=== PATIENT | female | born 1955 | race Caucasian/White ===

== ENCOUNTER → 2017-11-21 | Outpatient (CLI) | payer OTHER ==
[~2017-11-21] MED LIST: ALPH300C PO; ASPI-496 PO; ATOR-2 PO; ATOR20TA9 PO; CALCIUM PO; CODE1CAP9 PO; CYCL1DRO EACHEYE; DEXL60CA2 PO; DICL18CA PO; ENAL20TA PO; ERGO500017 PO; EZET10TA18 PO; HYDR25TA6 PO; LEVO125T PO; LEVO1CAP3 PO; LIDO700A5 EXT; LOVA10TA PO; METF-366 PO; METF500T4 PO; METH5TAB6 PO; MULT-6 PO; OMEG10007 PO; POTA1SOL4 PO; RABE20TA26 PO; TRAM50TA2 PO; ZALE10CA PO; [UNRECOGNIZED DRUG - CODE] PO
[2017-11-21 15:07] LABS: MICROSCOPIC NOT IND
[2017-11-21 15:10] LABS: CULTURE INDICATED? NO
[2017-11-21 15:20] LABS: MD NO; RED BLOOD COUNT 4.01 x10^6/uL (3.82-5.3)
[2017-11-21 15:28] LABS: BASOPHILS # (AUTO) 0.03 x10^3/uL (0-0.1); BASOPHILS % (AUTO) 1 % (0-1); EOSINOPHILS # (AUTO) 0.02 x10^3/uL (0-0.4); EOSINOPHILS % (AUTO) 1 % (1-7); LYMPHOCYTES # (AUTO) 1.02 x10^3/uL (1-3.4); LYMPHOCYTES % (AUTO) 28 % (22-44); MEAN CORPUSCULAR HEMOGLOBIN 24.3 pg (27.0-34.8); MEAN CORPUSCULAR HGB CONC 32.2 g/dL (32.4-35.8); MEAN CORPUSCULAR VOLUME 75.4 fL (80-100); MEAN PLATELET VOLUME 8.8 fL (7.4-10.4); MONOCYTES # (AUTO) 0.63 x10^3/uL (0.2-0.8); MONOCYTES % (AUTO) 17 % (2-9); NEUTROPHILS # (AUTO) 1.91 x10^3/uL (1.8-6.8); NEUTROPHILS % (AUTO) 53 % (42-75); PLATELET COUNT 233 x10^3/uL (130-400); RED CELL DISTRIBUTION WIDTH 17.4 % (9.6-15.2)
[2017-11-21 15:30] LABS: INTERNATIONAL NORMALIZED RATIO 0.98 (0.93-1.1); PROTHROMBIN TIME 10.2 Seconds (9.6-11.5)
[2017-11-21 15:35] LABS: CHLORIDE 106 mmol/L (98-107)
[2017-11-21 15:36] LABS: ALANINE AMINOTRANSFERASE 30 U/L (12-78); ALBUMIN 3.7 g/dL (3.4-5.0); ANION GAP 7 mmol/L (5-15); CALCIUM 7.3 mg/dL (8.5-10.1); CREATININE 0.64 mg/dL (0.55-1.02)
[2017-11-21 15:37] LABS: ALKALINE PHOSPHATASE 95 U/L (45-117); BILIRUBIN,TOTAL 0.3 mg/dL (0.2-1.0); TOTAL PROTEIN 7.2 g/dL (6.4-8.2)
== END | disposition home or self-care (01) ==
LOC: STAR 13:30
PROVIDERS: ATTEND Neurological Surgery
DX: Z01.818 Encounter for other preprocedural examination (principal); I10 Essential (primary) hypertension; E11.9 Type 2 diabetes mellitus without complications; M51.36 Other intervertebral disc degeneration, lumbar region; R94.31 Abnormal electrocardiogram [ECG] [EKG]
CPT/HCPCS: 36415; 71046; 80053; 81003; 85025; 85610; 85730; 93005

== ENCOUNTER → 2018-06-26 | Outpatient (CLI) | payer OTHER ==
[~2018-06-26] MED LIST changes: +AREDS 2 PO; +BUTA1CAP30 PO; +CALC1CAP8 PO; +FERROUS SULFATE PO; +FISH1CAP PO; +HYDR12.58 PO; +IRON PO; +MAGN400T36 PO; -METF500T4 PO; +METF500T5 PO; +METH500T7 PO; +MULT-717 PO
[2018-06-26 10:17] LABS: CULTURE INDICATED? YES; MICROSCOPIC AUTO
[2018-06-26 10:22] LABS: BASOPHILS # (AUTO) 0.03 x10^3/uL (0-0.1); BASOPHILS % (AUTO) 0 % (0-1); EOSINOPHILS # (AUTO) 0.15 x10^3/uL (0-0.4); EOSINOPHILS % (AUTO) 2 % (1-7); LYMPHOCYTES # (AUTO) 1.62 x10^3/uL (1-3.4); LYMPHOCYTES % (AUTO) 25 % (22-44); MD NO; MEAN CORPUSCULAR HEMOGLOBIN 32.4 pg (27.0-34.8); MEAN CORPUSCULAR HGB CONC 33.7 g/dL (32.4-35.8); MEAN PLATELET VOLUME 8.5 fL (7.4-10.4); MONOCYTES # (AUTO) 0.44 x10^3/uL (0.2-0.8); MONOCYTES % (AUTO) 7 % (2-9); NEUTROPHILS # (AUTO) 4.23 x10^3/uL (1.8-6.8); NEUTROPHILS % (AUTO) 66 % (42-75); PLATELET COUNT 236 x10^3/uL (130-400); RED BLOOD COUNT 4.31 x10^6/uL (3.82-5.3); RED CELL DISTRIBUTION WIDTH 14.1 % (9.6-15.2)
[2018-06-26 10:27] LABS: ALANINE AMINOTRANSFERASE 31 U/L (12-78); ALBUMIN 4.2 g/dL (3.4-5.0); ANION GAP 9 mmol/L (5-15); CALCIUM 8.4 mg/dL (8.5-10.1); CHLORIDE 103 mmol/L (98-107); CREATININE 0.82 mg/dL (0.55-1.02)
[2018-06-26 10:29] LABS: ALKALINE PHOSPHATASE 111 U/L (45-117); BILIRUBIN,TOTAL 0.5 mg/dL (0.2-1.0); TOTAL PROTEIN 7.9 g/dL (6.4-8.2)
[2018-06-26 10:55] LABS: INTERNATIONAL NORMALIZED RATIO 1.08 (0.93-1.1); PROTHROMBIN TIME 11.2 Seconds (9.6-11.5)
== END | disposition home or self-care (01) ==
LOC: STAR 09:05
PROVIDERS: ATTEND Neurological Surgery
DX: Z01.818 Encounter for other preprocedural examination (principal); M48.061 Spinal stenosis, lumbar region without neurogenic claudication
CPT/HCPCS: 36415; 71046; 72110; 72114; 80053; 81001; 85025; 85610; 85730; 87086; 93005

== ENCOUNTER 2018-07-05 06:18 | Inpatient (IN) | payer OTHER ==
[~2018-07-05] VITALS: Ht 167.6 cm; Wt 110.8 kg
[~2018-07-05 06:18] MED LIST changes: +METF500T17 PO; -METF500T5 PO
[2018-07-05] MEDS ORDERED: BUPIVACAINE 0.25% ONE (06:34)
[2018-07-05] MEDS ORDERED: BACITRACIN 50,000 UNIT ONE (06:35)
[2018-07-05] MEDS ORDERED: BUPIVACAINE/PF-EPI 0.5% 1:200K ONE (06:35)
[2018-07-05] MEDS ORDERED: THROMBIN 5,000 UNIT VIAL TP ONE (06:35)
[2018-07-05] MEDS ORDERED: LACTATED RINGERS 1,000 ML IV SCH (06:53)
[2018-07-05] MEDS ORDERED: FENTANYL PF 250 MCG/5ML ONE (08:29)
[2018-07-05] MEDS ORDERED: MIDAZOLAM 1 MG/ML, 2ML ONE (08:29)
[2018-07-05] MEDS ORDERED: SCOPOLAMINE PATCH, 1.5MG PATCH.TD72 TD ONE ×2 (09:18→09:30)
[2018-07-05] MEDS ORDERED: ROCURONIUM 10 MG/ML,10ML ONE (09:21)
[2018-07-05] MEDS ORDERED: PROPOFOL 10 MG/ML, 20ML ONE (09:29)
[2018-07-05] MEDS ORDERED: DEXAMETHASONE 4 MG/ML, 1ML ONE ×2 (09:29)
[2018-07-05] MEDS ORDERED: FAMOTIDINE 20 MG TABLET PO ONE (09:30)
[2018-07-05] MEDS ORDERED: GABAPENTIN 300 MG CAPSULE PO ONE (09:30)
[2018-07-05] MEDS ORDERED: ACETAMINOPHEN 500 MG TABLET PO ONE (09:30)
[2018-07-05] MEDS ORDERED: OxyconTIN ER 20 MG TAB.ER PO ONE (09:30)
[2018-07-05] MEDS ORDERED: CEFAZOLIN 1,000 MG ONE ×2 (09:31)
[2018-07-05] MEDS ORDERED: PROPOFOL 100 ML ONE (10:52)
[2018-07-05] MEDS ORDERED: PROMETHAZINE 25 MG/ML, 1ML IV PRN (11:00)
[2018-07-05] MEDS ORDERED: ONDANSETRON 2MG/ML, 2ML IV PRN (11:00)
[2018-07-05] MEDS ORDERED: hydrALAzine 20 MG/ML, 1ML IV PRN (11:00)
[2018-07-05] MEDS ORDERED: LABETALOL 5MG/ML, 20ML IV PRN (11:00)
[2018-07-05] MEDS ORDERED: OXYcodone 5 MG/5 ML ORAL.SOL UDC PO PRN (11:00)
[2018-07-05] MEDS ORDERED: MEPERIDINE/PF 25MG/0.5ML IVPush PRN (11:00)
[2018-07-05] MEDS ORDERED: DIAZEPAM 5 MG/ML, 2ML IVPush PRN (11:00)
[2018-07-05] MEDS ORDERED: ONDANSETRON 2MG/ML, 2ML ONE (11:04)
[2018-07-05] MEDS ORDERED: HYDROmorphone 2 MG/ML, 1ML ONE (11:28)
[2018-07-05] MEDS ORDERED: METHOCARBAMOL 750 MG TABLET ONE (11:28)
[2018-07-05] MEDS ORDERED: FENTANYL PF 100 MCG/2ML ONE ×2 (11:28→11:52)
[2018-07-05] MEDS ORDERED: DIPHENHYDRAMINE 50 MG/ML, 1ML IVPush PRN (11:30)
[2018-07-05] MEDS ORDERED: PHARMACY MAY ADJ FOR RENAL FX MC PRN (11:30)
[2018-07-05] MEDS ORDERED: BISACODYL 10 MG SUPP PR PRN (11:30)
[2018-07-05] MEDS ORDERED: INSULIN REGULAR 100 UNITS/ML, 3ML VIAL SQ-INSULIN PRN (11:30)
[2018-07-05] MEDS ORDERED: SENNA/DOCUSATE TABLET PO PRN (11:30)
[2018-07-05] MEDS ORDERED: morphine SULFATE 10 MG/ML, 1ML IVPush PRN (11:30)
[2018-07-05] MEDS ORDERED: PROMETHAZINE 25 MG/ML, 1ML IM PRN (11:30)
[2018-07-05] MEDS ORDERED: HYDROcodone/APAP 10/325 MG TABLET PO PRN (11:30)
[2018-07-05] MEDS ORDERED: ONDANSETRON 2MG/ML, 2ML IVPush PRN (11:30)
[2018-07-05] MEDS ORDERED: METHOCARBAMOL 750 MG TABLET PO PRN (11:30)
[2018-07-05] MEDS ORDERED: TEMPLATE NON-FORMULARY MED. (Butalbital/Aspirin/Caffeine** (Fiorinal 50-325-40 Mg Capsule PO PRN (11:30)
[2018-07-05] MEDS ORDERED: OXYcodone/APAP 5/325MG TABLET PO PRN (11:30)
[2018-07-05] MEDS: HYDROmorphone 1 MG/ML, 1ML IV PRN ×4 (11:32→12:01)
[2018-07-05] MEDS: FENTANYL PF 100 MCG/2ML IV PRN ×4 (11:34→12:06)
[2018-07-05] MEDS ORDERED: MEPERIDINE/PF 50 MG/ML ONE (12:09)
[2018-07-05] MEDS ORDERED: OXYcodone 5 MG/5 ML ORAL.SOL UDC ONE (12:09)
[2018-07-05 13:21] VITALS: BP 144/74
[2018-07-05] MEDS: NS + 20MEQ KCL 1,000 ML IV SCH (14:02)
[2018-07-05] MEDS: CALCIUM/VITAMIN D3 250-125 TABLET PO SCH ×2 (15:09→21:50)
[2018-07-05] MEDS: HYDROcodone/APAP 5/325 TABLET PO PRN ×2 (15:09→16:20)
[2018-07-05] MEDS ORDERED: IRON 65 MG PO SCH (16:00)
[2018-07-05] MEDS: CEFAZOLIN PMX 1GM/50ML 50 ML IVPB SCH (17:55)
[2018-07-05 19:48] VITALS: BP 113/64
[2018-07-05] MEDS ORDERED: METFORMIN HCL PO SCH (21:00)
[2018-07-05] MEDS: B12 PO SCH (21:00)
[2018-07-05] MEDS: LEVOMEFOLATE PO SCH (21:00)
[2018-07-05] MEDS: ALGAL OIL PO SCH (21:00)
[2018-07-05] MEDS: DICLOFENAC SUBMICRONIZED 18 MG PO SCH (21:00)
[2018-07-05] MEDS: TEMPLATE NON-FORMULARY MED. (Zaleplon** 10 MG) HOMEMEDPO SCH (21:00)
[2018-07-05] MEDS: SODIUM CHLORIDE FLUSH 10ML SYR IVF SCH (21:00)
[2018-07-05] MEDS ORDERED: TEMPLATE NON-FORMULARY MED. (Alpha Lipoic Acid** 600 MG) PO SCH (21:00)
[2018-07-05] MEDS: B6 PO SCH (21:00)
[2018-07-05] MEDS: ATORVASTATIN 20 MG TABLET PO SCH (21:50)
[2018-07-05] MEDS: ENALAPRIL 20MG TABLET PO SCH (21:50)
[2018-07-05] MEDS: metFORMIN 500 MG TABLET PO SCH (21:50)
[2018-07-06] MEDS: CEFAZOLIN PMX 1GM/50ML 50 ML IVPB SCH (01:26)
[2018-07-06] MEDS: HYDROcodone/APAP 5/325 TABLET PO PRN ×4 (01:26→20:16)
[2018-07-06 02:04] VITALS: BP 94/57
[2018-07-06] MEDS: LEVOTHYROXINE 125 MCG TABLET PO SCH (06:03)
[2018-07-06 08:50] VITALS: BP 85/54
[2018-07-06] MEDS: LEVOMEFOLATE PO SCH ×2 (09:00→21:00)
[2018-07-06] MEDS: HYDROCHLOROTHIAZIDE 12.5 MG CAPSULE PO SCH (09:00)
[2018-07-06] MEDS: SODIUM CHLORIDE FLUSH 10ML SYR IVF SCH ×2 (09:00→23:37)
[2018-07-06] MEDS: B6 PO SCH ×2 (09:00→21:00)
[2018-07-06] MEDS: RABEPRAZOLE SODIUM 20 MG PO SCH (09:00)
[2018-07-06] MEDS: ALGAL OIL PO SCH ×2 (09:00→21:00)
[2018-07-06] MEDS ORDERED: ERGOCALCIFEROL 50,000 UNIT CAPSULE PO SCH (09:00)
[2018-07-06] MEDS: ENALAPRIL 20MG TABLET PO SCH ×2 (09:00→20:17)
[2018-07-06] MEDS: B12 PO SCH ×2 (09:00→21:00)
[2018-07-06] MEDS: DICLOFENAC SUBMICRONIZED 18 MG PO SCH ×2 (09:00→21:00)
[2018-07-06] MEDS: CALCIUM/VITAMIN D3 250-125 TABLET PO SCH ×3 (09:31→20:16)
[2018-07-06] MEDS: FERROUS SULFATE 325 MG TABLET PO SCH (09:31)
[2018-07-06] MEDS: EZETIMIBE 10 MG TABLET PO SCH (09:32)
[2018-07-06] MEDS: MAGNESIUM OXIDE 400 MG TABLET PO SCH (09:32)
[2018-07-06] MEDS: metFORMIN 500 MG TABLET PO SCH ×2 (09:32→20:16)
[2018-07-06] MEDS: MULTIVITAMINS/MINERALS TABLET PO SCH (09:33)
[2018-07-06] MEDS: NS + 20MEQ KCL 1,000 ML IV SCH ×3 (10:00→20:00)
[2018-07-06 14:14] VITALS: BP 111/63
[2018-07-06 19:51] VITALS: BP 118/67
[2018-07-06] MEDS: ATORVASTATIN 20 MG TABLET PO SCH (20:16)
[2018-07-06] MEDS: TEMPLATE NON-FORMULARY MED. (Zaleplon** 10 MG) HOMEMEDPO SCH (21:00)
[2018-07-07 00:32] VITALS: BP 112/64
[2018-07-07] MEDS: HYDROcodone/APAP 5/325 TABLET PO PRN ×3 (00:43→21:50)
[2018-07-07] MEDS: NS + 20MEQ KCL 1,000 ML IV SCH ×3 (05:13→22:53)
[2018-07-07] MEDS: LEVOTHYROXINE 125 MCG TABLET PO SCH (05:59)
[2018-07-07] MEDS ORDERED: BUPIVACAINE/PF-EPI 0.5% 1:200K ONE (06:39)
[2018-07-07] MEDS ORDERED: BUPIVACAINE 0.25% ONE (06:39)
[2018-07-07] MEDS ORDERED: THROMBIN 5,000 UNIT VIAL TP ONE (06:40)
[2018-07-07] MEDS ORDERED: BACITRACIN 50,000 UNIT ONE (06:40)
[2018-07-07] MEDS ORDERED: MIDAZOLAM 1 MG/ML, 2ML ONE (06:57)
[2018-07-07] MEDS ORDERED: FENTANYL PF 250 MCG/5ML ONE ×2 (06:57→08:34)
[2018-07-07] MEDS ORDERED: PROPOFOL 100 ML ONE (06:57)
[2018-07-07] MEDS ORDERED: BUPIVACAINE LIPOSOME/PF 10ML INFIL ONE (06:59)
[2018-07-07] MEDS ORDERED: ONDANSETRON 2MG/ML, 2ML ONE (07:04)
[2018-07-07] MEDS ORDERED: SUCCINYLCHOLINE 20 MG/ML, 10ML ONE (07:04)
[2018-07-07] MEDS ORDERED: LIDOCAINE 4%, 4 ML SYR/CANN TP ONE (07:04)
[2018-07-07] MEDS ORDERED: BUPIVACAINE/PF-EPI 0.5% 1:200K INFIL ONE (07:32)
[2018-07-07] MEDS ORDERED: BACITRACIN 50,000 UNIT IM ONE (07:32)
[2018-07-07] MEDS ORDERED: PROMETHAZINE 25 MG/ML, 1ML IV PRN (08:00)
[2018-07-07] MEDS ORDERED: ONDANSETRON ODT 8 MG PO PRN (08:00)
[2018-07-07] MEDS ORDERED: hydrALAzine 20 MG/ML, 1ML IV PRN (08:00)
[2018-07-07] MEDS ORDERED: DIAZEPAM 5 MG/ML, 2ML IVPush PRN (08:00)
[2018-07-07] MEDS ORDERED: ONDANSETRON 2MG/ML, 2ML IV PRN (08:00)
[2018-07-07] MEDS ORDERED: MEPERIDINE/PF 25MG/0.5ML IVPush PRN (08:00)
[2018-07-07] MEDS ORDERED: FENTANYL PF 100 MCG/2ML IV PRN (08:00)
[2018-07-07] MEDS ORDERED: OXYcodone 5 MG/5 ML ORAL.SOL UDC PO PRN (08:00)
[2018-07-07] MEDS ORDERED: MORPHINE SULFATE 4 MG/ML, 1ML IVPush PRN (08:00)
[2018-07-07] MEDS ORDERED: ACETAMINOPHEN 325 MG TABLET PO PRN (08:00)
[2018-07-07] MEDS ORDERED: LABETALOL 5MG/ML, 20ML IV PRN (08:00)
[2018-07-07] MEDS: B6 PO SCH ×2 (09:00→21:00)
[2018-07-07] MEDS: B12 PO SCH ×2 (09:00→21:00)
[2018-07-07] MEDS: CALCIUM/VITAMIN D3 250-125 TABLET PO SCH ×3 (09:00→21:49)
[2018-07-07] MEDS: DICLOFENAC SUBMICRONIZED 18 MG PO SCH ×2 (09:00→21:00)
[2018-07-07] MEDS: ALGAL OIL PO SCH ×2 (09:00→21:00)
[2018-07-07] MEDS: RABEPRAZOLE SODIUM 20 MG PO SCH (09:00)
[2018-07-07] MEDS: LEVOMEFOLATE PO SCH ×2 (09:00→21:00)
[2018-07-07] MEDS ORDERED: PHARMACY MAY ADJ FOR RENAL FX MC PRN (10:30)
[2018-07-07] MEDS ORDERED: HYDROcodone/APAP 10/325 MG TABLET PO PRN (10:30)
[2018-07-07] MEDS ORDERED: BISACODYL 10 MG SUPP PR PRN (10:30)
[2018-07-07] MEDS ORDERED: DIPHENHYDRAMINE 50 MG/ML, 1ML IVPush PRN (10:30)
[2018-07-07] MEDS ORDERED: OXYcodone/APAP 5/325MG TABLET PO PRN (10:30)
[2018-07-07] MEDS ORDERED: ONDANSETRON 2MG/ML, 2ML IVPush PRN (10:30)
[2018-07-07] MEDS ORDERED: morphine SULFATE 10 MG/ML, 1ML IVPush PRN (10:30)
[2018-07-07] MEDS ORDERED: PROMETHAZINE 25 MG/ML, 1ML IM PRN (10:30)
[2018-07-07] MEDS ORDERED: HYDROmorphone 2 MG/ML, 1ML ONE (10:39)
[2018-07-07] MEDS ORDERED: OXYcodone 5 MG/5 ML ORAL.SOL UDC ONE (10:39)
[2018-07-07] MEDS: HYDROmorphone 1 MG/ML, 1ML IV PRN ×2 (10:42→10:55)
[2018-07-07] MEDS ORDERED: LABETALOL 5MG/ML, 20ML ONE (11:24)
[2018-07-07] MEDS: ENALAPRIL 20MG TABLET PO SCH ×2 (12:14→21:00)
[2018-07-07] MEDS: metFORMIN 500 MG TABLET PO SCH ×2 (12:14→21:49)
[2018-07-07] MEDS: HYDROCHLOROTHIAZIDE 12.5 MG CAPSULE PO SCH (12:15)
[2018-07-07] MEDS: MULTIVITAMINS/MINERALS TABLET PO SCH (12:16)
[2018-07-07] MEDS: FERROUS SULFATE 325 MG TABLET PO SCH (12:16)
[2018-07-07] MEDS: MAGNESIUM OXIDE 400 MG TABLET PO SCH (12:16)
[2018-07-07] MEDS: EZETIMIBE 10 MG TABLET PO SCH (12:16)
[2018-07-07 14:42] VITALS: BP 110/68
[2018-07-07] MEDS: CEFAZOLIN PMX 1GM/50ML 50 ML IVPB SCH ×2 (15:19→22:52)
[2018-07-07 20:08] VITALS: BP 106/66
[2018-07-07] MEDS: TEMPLATE NON-FORMULARY MED. (Zaleplon** 10 MG) HOMEMEDPO SCH (21:00)
[2018-07-07] MEDS: SODIUM CHLORIDE FLUSH 10ML SYR IVF SCH (21:00)
[2018-07-07] MEDS: ATORVASTATIN 20 MG TABLET PO SCH (21:48)
[2018-07-08 00:35] VITALS: BP 102/66
[2018-07-08] MEDS: HYDROcodone/APAP 5/325 TABLET PO PRN ×6 (02:02→23:37)
[2018-07-08] MEDS: CYCLOBENZAPRINE 10 MG TABLET PO PRN (03:22)
[2018-07-08] MEDS: ENOXAPARIN 40 MG/0.4 ML SQ SCH (06:43)
[2018-07-08] MEDS: LEVOTHYROXINE 125 MCG TABLET PO SCH (06:43)
[2018-07-08 06:53] VITALS: BP 95/61
[2018-07-08] MEDS: ENALAPRIL 20MG TABLET PO SCH ×2 (09:00→20:50)
[2018-07-08] MEDS: LEVOMEFOLATE PO SCH ×2 (09:00→20:41)
[2018-07-08] MEDS: B12 PO SCH ×2 (09:00→20:41)
[2018-07-08] MEDS: DICLOFENAC SUBMICRONIZED 18 MG PO SCH ×2 (09:00→20:41)
[2018-07-08] MEDS: B6 PO SCH ×2 (09:00→20:41)
[2018-07-08] MEDS: SODIUM CHLORIDE FLUSH 10ML SYR IVF SCH ×2 (09:00→20:54)
[2018-07-08] MEDS: RABEPRAZOLE SODIUM 20 MG PO SCH (09:00)
[2018-07-08] MEDS: HYDROCHLOROTHIAZIDE 12.5 MG CAPSULE PO SCH (09:00)
[2018-07-08] MEDS: ALGAL OIL PO SCH ×2 (09:00→20:41)
[2018-07-08] MEDS: FERROUS SULFATE 325 MG TABLET PO SCH (09:39)
[2018-07-08] MEDS: CALCIUM/VITAMIN D3 250-125 TABLET PO SCH ×3 (09:41→20:50)
[2018-07-08] MEDS: MULTIVITAMINS/MINERALS TABLET PO SCH (09:41)
[2018-07-08] MEDS: metFORMIN 500 MG TABLET PO SCH ×2 (09:41→20:50)
[2018-07-08] MEDS: EZETIMIBE 10 MG TABLET PO SCH (09:41)
[2018-07-08] MEDS: MAGNESIUM OXIDE 400 MG TABLET PO SCH (09:41)
[2018-07-08 14:06] VITALS: BP 104/58
[2018-07-08] MEDS: SENNA/DOCUSATE TABLET PO PRN (14:33)
[2018-07-08 20:00] VITALS: BP 109/69
[2018-07-08] MEDS: TEMPLATE NON-FORMULARY MED. (Zaleplon** 10 MG) HOMEMEDPO SCH (20:41)
[2018-07-08] MEDS: NS + 20MEQ KCL 1,000 ML IV SCH (20:41)
[2018-07-08] MEDS: ATORVASTATIN 20 MG TABLET PO SCH (20:50)
[2018-07-09 02:25] VITALS: BP 104/58
[2018-07-09] MEDS: HYDROcodone/APAP 5/325 TABLET PO PRN ×5 (03:46→22:47)
[2018-07-09] MEDS: SENNA/DOCUSATE TABLET PO PRN (06:17)
[2018-07-09] MEDS: ENOXAPARIN 40 MG/0.4 ML SQ SCH (06:17)
[2018-07-09] MEDS: LEVOTHYROXINE 125 MCG TABLET PO SCH (06:17)
[2018-07-09] MEDS: NS + 20MEQ KCL 1,000 ML IV SCH ×2 (06:19→16:51)
[2018-07-09 07:20] VITALS: BP 108/68
[2018-07-09] MEDS: FERROUS SULFATE 325 MG TABLET PO SCH (08:06)
[2018-07-09] MEDS: B12 PO SCH ×2 (08:07→21:00)
[2018-07-09] MEDS: metFORMIN 500 MG TABLET PO SCH ×2 (08:07→21:38)
[2018-07-09] MEDS: ENALAPRIL 20MG TABLET PO SCH ×2 (08:07→21:38)
[2018-07-09] MEDS: B6 PO SCH ×2 (08:07→21:00)
[2018-07-09] MEDS: CALCIUM/VITAMIN D3 250-125 TABLET PO SCH ×3 (08:07→21:38)
[2018-07-09] MEDS: MAGNESIUM OXIDE 400 MG TABLET PO SCH (08:07)
[2018-07-09] MEDS: ALGAL OIL PO SCH ×2 (08:07→21:00)
[2018-07-09] MEDS: HYDROCHLOROTHIAZIDE 12.5 MG CAPSULE PO SCH (08:07)
[2018-07-09] MEDS: DICLOFENAC SUBMICRONIZED 18 MG PO SCH ×2 (08:07→21:00)
[2018-07-09] MEDS: EZETIMIBE 10 MG TABLET PO SCH (08:07)
[2018-07-09] MEDS: LEVOMEFOLATE PO SCH ×2 (08:07→21:00)
[2018-07-09] MEDS: MULTIVITAMINS/MINERALS TABLET PO SCH (08:07)
[2018-07-09] MEDS: SODIUM CHLORIDE FLUSH 10ML SYR IVF SCH (08:08)
[2018-07-09] MEDS: RABEPRAZOLE SODIUM 20 MG PO SCH (08:08)
[2018-07-09 13:19] VITALS: BP 119/70
[2018-07-09 19:38] VITALS: BP 106/67
[2018-07-09] MEDS: TEMPLATE NON-FORMULARY MED. (Zaleplon** 10 MG) HOMEMEDPO SCH (21:00)
[2018-07-09] MEDS: ATORVASTATIN 20 MG TABLET PO SCH (21:38)
[2018-07-10 01:25] VITALS: BP 101/52
[2018-07-10] MEDS: HYDROcodone/APAP 5/325 TABLET PO PRN ×3 (02:33→10:38)
[2018-07-10] MEDS: NS + 20MEQ KCL 1,000 ML IV SCH (03:00)
[2018-07-10] MEDS: LEVOTHYROXINE 125 MCG TABLET PO SCH (06:30)
[2018-07-10] MEDS: SODIUM CHLORIDE FLUSH 10ML SYR IVF SCH ×2 (06:30→08:03)
[2018-07-10] MEDS: ENOXAPARIN 40 MG/0.4 ML SQ SCH (06:30)
[2018-07-10 07:16] VITALS: BP 116/77
[2018-07-10] MEDS: ENALAPRIL 20MG TABLET PO SCH (08:00)
[2018-07-10] MEDS: EZETIMIBE 10 MG TABLET PO SCH (08:01)
[2018-07-10] MEDS: CALCIUM/VITAMIN D3 250-125 TABLET PO SCH (08:01)
[2018-07-10] MEDS: MULTIVITAMINS/MINERALS TABLET PO SCH (08:01)
[2018-07-10] MEDS: MAGNESIUM OXIDE 400 MG TABLET PO SCH (08:01)
[2018-07-10] MEDS: HYDROCHLOROTHIAZIDE 12.5 MG CAPSULE PO SCH (08:01)
[2018-07-10] MEDS: metFORMIN 500 MG TABLET PO SCH (08:01)
[2018-07-10] MEDS: FERROUS SULFATE 325 MG TABLET PO SCH (08:02)
[2018-07-10] MEDS: RABEPRAZOLE SODIUM 20 MG PO SCH (08:02)
[2018-07-10] MEDS: DICLOFENAC SUBMICRONIZED 18 MG PO SCH (08:03)
[2018-07-10] MEDS: ALGAL OIL PO SCH (08:03)
[2018-07-10] MEDS: LEVOMEFOLATE PO SCH (08:03)
[2018-07-10] MEDS: B12 PO SCH (08:03)
[2018-07-10] MEDS: B6 PO SCH (08:03)
[2018-07-10] MEDS ORDERED: HYDR-3240 PO (09:07)
[2018-07-10] MEDS ORDERED: METH750T87 PO (09:07)
[2018-07-10] MEDS ORDERED: CEPH-368 PO (09:08)
[2018-07-10] MEDS: CYCLOBENZAPRINE 10 MG TABLET PO PRN (10:38)
== END 2018-07-10 11:15 | disposition home or self-care (01) | DRG 454 ==
LOC: ORIP 06:18 → 4NOR 13:00 → DCLOUNGE 07-10 11:00
PROVIDERS: ADMIT Neurological Surgery; ATTEND Neurological Surgery
PROC: 0SG0071 Fusion of Lumbar Vertebral Joint with Autologous Tissue Substitute, Posterior Approach, Posterior Column, Open Approach (ICD-10-PCS; 2018-07-07)
PROC: 0SP304Z Removal of Internal Fixation Device from Lumbosacral Joint, Open Approach (ICD-10-PCS; 2018-07-07)
PROC: 4A11X4G Monitoring of Peripheral Nervous Electrical Activity, Intraoperative, External Approach (ICD-10-PCS; 2018-07-07)
PROC: 0SG00A0 Fusion of Lumbar Vertebral Joint with Interbody Fusion Device, Anterior Approach, Anterior Column, Open Approach (ICD-10-PCS; principal; 2018-07-07 10:00)
DX: M48.061 Spinal stenosis, lumbar region without neurogenic claudication (principal); G97.41 Accidental puncture or laceration of dura during a procedure; K21.9 Gastro-esophageal reflux disease without esophagitis; M41.80 Other forms of scoliosis, site unspecified; M46.90 Unspecified inflammatory spondylopathy, site unspecified; M51.16 Intervertebral disc disorders with radiculopathy, lumbar region; M53.2X6 Spinal instabilities, lumbar region; Z83.79 Family history of other diseases of the digestive system; Y83.8 Other surgical procedures as the cause of abnormal reaction of the patient, or of later complication, without mention of misadventure at the time of the procedure
CPT/HCPCS: 72100; 72131; 82962; C1713; C1729; G0378; J0690; J1100; J1170; J1650; J2175; J2250; J2405; J2704; J3010; J3480; J3490; C1760; C1762; C1781; J0330; J7120

== ENCOUNTER 2019-07-29 09:50 | Outpatient (CLI) | payer MEDICARE, OTHER ==
[~2019-07-29 09:50] MED LIST changes: +ATOR20TA37 PO; -ATOR20TA9 PO; +CEPH-368 PO; -EZET10TA18 PO; +EZET10TA70 PO; +HYDR-3240 PO; -HYDR12.58 PO; +HYDROCHLOROTH12.5 MG PO; +METH750T87 PO
== END 2019-07-30 23:59 | disposition home or self-care (01) ==
LOC: RAD 09:50
PROVIDERS: ATTEND Internal Medicine
DX: R79.89 Other specified abnormal findings of blood chemistry (principal)
CPT/HCPCS: 78804; A9572

== ENCOUNTER → 2020-04-02 | Outpatient (CLI) | payer MEDICARE, OTHER ==
[~2020-04-02] MED LIST changes: +DICL50TA4 PO; +DICY10CA3 PO
[2020-04-02 14:46] LABS: BASOPHILS # (AUTO) 0.02 x10^3/uL (0-0.1); BASOPHILS % (AUTO) 0 % (0-1); EOSINOPHILS # (AUTO) 0.16 x10^3/uL (0-0.4); EOSINOPHILS % (AUTO) 2 % (1-7); LYMPHOCYTES # (AUTO) 2.05 x10^3/uL (1-3.4); LYMPHOCYTES % (AUTO) 24 % (22-44); MD NO; MEAN CORPUSCULAR HGB CONC 32.9 g/dL (32.4-35.8); MEAN CORPUSCULAR VOLUME 97.3 fL (80-100); MEAN PLATELET VOLUME 8.3 fL (7.4-10.4); MONOCYTES # (AUTO) 0.67 x10^3/uL (0.2-0.8); MONOCYTES % (AUTO) 8 % (2-9); NEUTROPHILS # (AUTO) 5.54 x10^3/uL (1.8-6.8); NEUTROPHILS % (AUTO) 66 % (42-75); PLATELET COUNT 284 x10^3/uL (130-400); RED BLOOD COUNT 4.16 x10^6/uL (3.82-5.3); RED CELL DISTRIBUTION WIDTH 13.1 % (9.6-15.2)
[2020-04-02 14:55] LABS: MICROSCOPIC AUTO
[2020-04-02 14:56] LABS: INTERNATIONAL NORMALIZED RATIO 1.01 (0.93-1.1); PROTHROMBIN TIME 10.7 Seconds (9.6-11.5)
[2020-04-02 14:58] LABS: ANION GAP 7 mmol/L (5-15); CALCIUM 8.5 mg/dL (8.5-10.1); CHLORIDE 105 mmol/L (98-107)
[2020-04-02 15:02] LABS: ALANINE AMINOTRANSFERASE 40 U/L (12-78); ALKALINE PHOSPHATASE 122 U/L (45-117); BILIRUBIN,TOTAL 0.4 mg/dL (0.2-1.0); CREATININE 0.73 mg/dL (0.55-1.02); TOTAL PROTEIN 7.5 g/dL (6.4-8.2)
== END | disposition home or self-care (01) ==
LOC: STAR 13:01
PROVIDERS: ATTEND Neurological Surgery
DX: Z01.811 Encounter for preprocedural respiratory examination (principal); Z01.810 Encounter for preprocedural cardiovascular examination; Z01.812 Encounter for preprocedural laboratory examination; M48.061 Spinal stenosis, lumbar region without neurogenic claudication; R79.1 Abnormal coagulation profile; R94.31 Abnormal electrocardiogram [ECG] [EKG]; R82.90 Unspecified abnormal findings in urine; M41.86 Other forms of scoliosis, lumbar region
CPT/HCPCS: 36415; 71046; 72110; 80053; 81001; 85025; 85610; 85730; 87086; 93005

== ENCOUNTER 2020-04-10 05:28 | Inpatient (IN) | payer MEDICARE, OTHER ==
[~2020-04-10] VITALS: Ht 167.6 cm; Wt 113.2 kg
[2020-04-10] MEDS ORDERED: BUPIVACAINE/EPI 0.5% 1:200K ONE (06:03)
[2020-04-10] MEDS ORDERED: BACITRACIN 50,000 UNIT ONE (06:03)
[2020-04-10] MEDS ORDERED: VANCOMYCIN 1,000 MG ONE (06:07)
[2020-04-10] MEDS ORDERED: LACTATED RINGERS 1,000 ML IV SCH (06:11)
[2020-04-10] MEDS ORDERED: CHLORHEXIDINE 15 ML UDC ONE (06:12)
[2020-04-10] MEDS ORDERED: LIDOCAINE-MPF 1%, 2ML INFIL ONE (06:30)
[2020-04-10] MEDS ORDERED: CHLORHEXIDINE 15 ML UDC MM ONE (06:30)
[2020-04-10] MEDS ORDERED: ACETAMINOPHEN 500 MG TABLET ONE (06:38)
[2020-04-10] MEDS ORDERED: GABAPENTIN 300 MG CAPSULE ONE (06:38)
[2020-04-10] MEDS ORDERED: SCOPOLAMINE 1MG PATCH TD ONE (06:48)
[2020-04-10] MEDS: SCOPOLAMINE 1MG PATCH TD SCH (06:50)
[2020-04-10] MEDS ORDERED: MIDAZOLAM 1 MG/ML, 2ML ONE (06:52)
[2020-04-10] MEDS ORDERED: FENTANYL PF 250 MCG/5ML ONE (06:52)
[2020-04-10] MEDS ORDERED: PROPOFOL 50 ML ONE (06:52)
[2020-04-10] MEDS ORDERED: LIDOCAINE 4%, 4 ML SYR/CANN TP ONE (06:57)
[2020-04-10] MEDS ORDERED: ACETAMINOPHEN 500 MG TABLET PO ONE (07:00)
[2020-04-10] MEDS ORDERED: GABAPENTIN 300 MG CAPSULE PO ONE (07:00)
[2020-04-10] MEDS ORDERED: HYDR-3240 PO (07:03)
[2020-04-10] MEDS ORDERED: EPHEDRINE 50 MG/ML, 1ML ONE (07:03)
[2020-04-10] MEDS ORDERED: PROMETHAZINE 25 MG/ML, 1ML IVPush PRN (08:00)
[2020-04-10] MEDS ORDERED: LABETALOL 5MG/ML, 20ML IV PRN ×3 (08:00→12:30)
[2020-04-10] MEDS ORDERED: hydrALAzine 20 MG/ML, 1ML IV PRN (08:00)
[2020-04-10] MEDS ORDERED: DIPHENHYDRAMINE 50 MG/ML, 1ML IVPush PRN (08:00)
[2020-04-10] MEDS ORDERED: MEPERIDINE/PF 25MG/0.5ML IVPush PRN (08:00)
[2020-04-10] MEDS ORDERED: OXYcodone 5 MG/5 ML ORAL.SOL UDC PO PRN (08:00)
[2020-04-10] MEDS ORDERED: HALOPERIDOL 5 MG/ML IV PRN (08:00)
[2020-04-10] MEDS ORDERED: GLYCOPYRROLATE 0.2MG/1ML, 5ML ONE (08:54)
[2020-04-10] MEDS ORDERED: SUCCINYLCHOLINE 20 MG/ML, 10ML ONE (08:54)
[2020-04-10] MEDS ORDERED: NEOSTIGMINE 1 MG/ML, 10ML ONE (08:54)
[2020-04-10] MEDS ORDERED: PROPOFOL 10 MG/ML, 20ML ONE (08:54)
[2020-04-10] MEDS ORDERED: DEXAMETHASONE 4 MG/ML, 1ML ONE (08:54)
[2020-04-10] MEDS ORDERED: ROCURONIUM 10MG/ML,5ML ONE (08:54)
[2020-04-10] MEDS ORDERED: ONDANSETRON 2MG/ML, 2ML ONE (08:54)
[2020-04-10] MEDS ORDERED: CEFAZOLIN 1,000 MG ONE (08:54)
[2020-04-10] MEDS ORDERED: SCOPOLAMINE PATCH, 1.5MG PATCH.TD72 TD ONE (09:13)
[2020-04-10] MEDS ORDERED: OXYcodone 5 MG/5 ML ORAL.SOL UDC ONE (09:18)
[2020-04-10] MEDS ORDERED: FENTANYL PF 100 MCG/2ML ONE ×2 (09:18→09:49)
[2020-04-10] MEDS: FENTANYL PF 100 MCG/2ML IV PRN ×4 (09:27→10:06)
[2020-04-10] MEDS: HYDROmorphone 1 MG/ML, 1ML INJ IVPush PRN ×4 (10:11→10:30)
[2020-04-10] MEDS ORDERED: hydrALAzine 20 MG/ML, 1ML ONE (10:32)
[2020-04-10] MEDS ORDERED: PROMETHAZINE 25 MG/ML, 1ML IM PRN (12:00)
[2020-04-10] MEDS ORDERED: HYDROmorphone 2 MG/ML, 1ML IVPush PRN (12:00)
[2020-04-10] MEDS ORDERED: BISACODYL 10 MG SUPP PR PRN (12:00)
[2020-04-10] MEDS ORDERED: DIPHENHYDRAMINE 25 MG CAPSULE PO PRN (12:00)
[2020-04-10] MEDS ORDERED: MAGNESIUM HYDROXIDE 8%, 30ML UDC PO PRN (12:00)
[2020-04-10 13:37] VITALS: BP 138/70
[2020-04-10] MEDS: OXYcodone IR 5MG TABLET PO PRN ×3 (13:46→20:34)
[2020-04-10] MEDS: NS + 20MEQ KCL 1,000 ML IV SCH (13:46)
[2020-04-10] MEDS: METHOCARBAMOL 750 MG TABLET PO PRN (13:46)
[2020-04-10] MEDS: CEFAZOLIN PMX 1GM/50ML 50 ML IVPB SCH (16:12)
[2020-04-10] MEDS: INSULIN REGULAR 100 UNITS/ML, 3ML VIAL SQ-INSULIN SCH ×2 (16:19→20:35)
[2020-04-10 19:43] VITALS: BP 115/77
[2020-04-10] MEDS: ATORVASTATIN 80 MG TABLET PO SCH (20:35)
[2020-04-10] MEDS: ENALAPRIL 20MG TABLET PO SCH (20:35)
[2020-04-10] MEDS: metFORMIN XR 500 MG TAB.ER.24H PO SCH (20:35)
[2020-04-10] MEDS ORDERED: ZOLPIDEM 5MG TABLET PO PRN (21:00)
[2020-04-11] MEDS: CEFAZOLIN PMX 1GM/50ML 50 ML IVPB SCH (00:02)
[2020-04-11] MEDS: METHOCARBAMOL 750 MG TABLET PO PRN ×2 (00:02→21:18)
[2020-04-11] MEDS: NS + 20MEQ KCL 1,000 ML IV SCH ×3 (00:03→19:29)
[2020-04-11 00:26] VITALS: BP 113/70
[2020-04-11] MEDS: HYDROcodone/APAP 10/325 MG TABLET PO PRN ×5 (01:34→21:18)
[2020-04-11 04:20] VITALS: BP 113/73
[2020-04-11 05:24] LABS: BASOPHILS # (AUTO) 0.01 x10^3/uL (0-0.1); BASOPHILS % (AUTO) 0 % (0-1); EOSINOPHILS # (AUTO) 0.02 x10^3/uL (0-0.4); EOSINOPHILS % (AUTO) 0 % (1-7); LYMPHOCYTES # (AUTO) 1.68 x10^3/uL (1-3.4); LYMPHOCYTES % (AUTO) 18 % (22-44); MD NO; MEAN CORPUSCULAR HEMOGLOBIN 32.1 pg (27.0-34.8); MEAN CORPUSCULAR HGB CONC 32.7 g/dL (32.4-35.8); MEAN PLATELET VOLUME 8.7 fL (7.4-10.4); MONOCYTES # (AUTO) 0.98 x10^3/uL (0.2-0.8); MONOCYTES % (AUTO) 10 % (2-9); NEUTROPHILS % (AUTO) 72 % (42-75); PLATELET COUNT 217 x10^3/uL (130-400); RED BLOOD COUNT 3.83 x10^6/uL (3.82-5.3); RED CELL DISTRIBUTION WIDTH 13.9 % (9.6-15.2)
[2020-04-11] MEDS: PANTOPRAZOLE 40MG TABLET PO SCH (05:28)
[2020-04-11] MEDS: LEVOTHYROXINE 125 MCG TABLET PO SCH (05:28)
[2020-04-11 05:38] LABS: ANION GAP 8 mmol/L (5-15); CALCIUM 7.7 mg/dL (8.5-10.1); CHLORIDE 109 mmol/L (98-107)
[2020-04-11 05:40] LABS: CREATININE 0.54 mg/dL (0.55-1.02)
[2020-04-11] MEDS ORDERED: ENOXAPARIN 40 MG/0.4 ML SQ SCH (06:00)
[2020-04-11] MEDS: INSULIN REGULAR 100 UNITS/ML, 3ML VIAL SQ-INSULIN SCH ×4 (07:00→21:00)
[2020-04-11 08:00] VITALS: BP 118/70
[2020-04-11] MEDS: metFORMIN XR 500 MG TAB.ER.24H PO SCH ×2 (08:37→21:18)
[2020-04-11] MEDS: MAGNESIUM OXIDE 400 MG TABLET PO SCH (08:37)
[2020-04-11] MEDS: HYDROCHLOROTHIAZIDE 12.5 MG CAPSULE PO SCH (08:37)
[2020-04-11] MEDS: ENALAPRIL 20MG TABLET PO SCH ×2 (08:37→21:18)
[2020-04-11] MEDS ORDERED: SENNA/DOCUSATE TABLET PO SCH (09:00)
[2020-04-11 12:53] VITALS: BP 112/80
[2020-04-11] MEDS: BUTALB/APAP/CAFFEINE 50MG/325MG/40MG PO PRN (15:12)
[2020-04-11 18:52] VITALS: BP 115/58
[2020-04-11] MEDS: ATORVASTATIN 80 MG TABLET PO SCH (21:18)
[2020-04-11] MEDS: ONDANSETRON 2MG/ML, 2ML IV PRN (21:21)
[2020-04-12 01:17] VITALS: BP 123/73
[2020-04-12] MEDS: BUTALB/APAP/CAFFEINE 50MG/325MG/40MG PO PRN (02:48)
[2020-04-12] MEDS: ONDANSETRON 2MG/ML, 2ML IV PRN (03:18)
[2020-04-12] MEDS: NS + 20MEQ KCL 1,000 ML IV SCH ×2 (05:22→16:00)
[2020-04-12] MEDS: PANTOPRAZOLE 40MG TABLET PO SCH (05:23)
[2020-04-12] MEDS: LEVOTHYROXINE 125 MCG TABLET PO SCH (05:26)
[2020-04-12 05:36] LABS: BASOPHILS # (AUTO) 0.01 x10^3/uL (0-0.1); BASOPHILS % (AUTO) 0 % (0-1); EOSINOPHILS # (AUTO) 0.02 x10^3/uL (0-0.4); EOSINOPHILS % (AUTO) 0 % (1-7); LYMPHOCYTES # (AUTO) 0.98 x10^3/uL (1-3.4); LYMPHOCYTES % (AUTO) 10 % (22-44); MD NO; MEAN CORPUSCULAR HEMOGLOBIN 31.8 pg (27.0-34.8); MEAN CORPUSCULAR HGB CONC 32.9 g/dL (32.4-35.8); MEAN CORPUSCULAR VOLUME 96.9 fL (80-100); MEAN PLATELET VOLUME 9.2 fL (7.4-10.4); MONOCYTES # (AUTO) 0.97 x10^3/uL (0.2-0.8); MONOCYTES % (AUTO) 9 % (2-9); NEUTROPHILS # (AUTO) 8.25 x10^3/uL (1.8-6.8); NEUTROPHILS % (AUTO) 81 % (42-75); PLATELET COUNT 204 x10^3/uL (130-400); RED BLOOD COUNT 3.84 x10^6/uL (3.82-5.3); RED CELL DISTRIBUTION WIDTH 13.7 % (9.6-15.2)
[2020-04-12 05:44] LABS: ANION GAP 7 mmol/L (5-15); CALCIUM 7.7 mg/dL (8.5-10.1); CHLORIDE 104 mmol/L (98-107); CREATININE 0.57 mg/dL (0.55-1.02)
[2020-04-12] MEDS ORDERED: BUPIVACAINE/EPI 0.5% 1:200K ONE (06:00)
[2020-04-12] MEDS ORDERED: BACITRACIN 50,000 UNIT ONE (06:00)
[2020-04-12] MEDS ORDERED: VANCOMYCIN 1,000 MG ONE (06:00)
[2020-04-12] MEDS ORDERED: SCOPOLAMINE 1MG PATCH TD ONE (06:52)
[2020-04-12] MEDS: INSULIN REGULAR 100 UNITS/ML, 3ML VIAL SQ-INSULIN SCH ×4 (07:00→20:41)
[2020-04-12] MEDS ORDERED: BUPIVACAINE 0.25% ONE (07:07)
[2020-04-12] MEDS ORDERED: PROPOFOL 10 MG/ML, 50ML ONE (07:17)
[2020-04-12] MEDS ORDERED: MIDAZOLAM 1 MG/ML, 2ML ONE (07:17)
[2020-04-12] MEDS ORDERED: DEXAMETHASONE 4 MG/ML, 1ML ONE (07:17)
[2020-04-12] MEDS ORDERED: ROCURONIUM 10MG/ML,5ML ONE (07:17)
[2020-04-12] MEDS ORDERED: FENTANYL PF 250 MCG/5ML ONE (07:17)
[2020-04-12] MEDS ORDERED: SUCCINYLCHOLINE 20 MG/ML, 10ML ONE (07:17)
[2020-04-12] MEDS ORDERED: EPHEDRINE 50 MG/ML, 1ML ONE (07:17)
[2020-04-12] MEDS ORDERED: PROPOFOL 10 MG/ML, 20ML ONE ×2 (07:17)
[2020-04-12] MEDS ORDERED: BUPIVACAINE LIPOSOME/PF 10ML INFIL ONE (07:17)
[2020-04-12] MEDS ORDERED: PHENYLEPHRINE 10 MG/ML ONE (07:17)
[2020-04-12] MEDS ORDERED: ONDANSETRON 2MG/ML, 2ML ONE ×2 (07:17→09:00)
[2020-04-12] MEDS ORDERED: CEFAZOLIN 1,000 MG ONE (07:17)
[2020-04-12] MEDS ORDERED: VANCOMYCIN 1,000 MG IM ONE (07:55)
[2020-04-12] MEDS ORDERED: hydrALAzine 20 MG/ML, 1ML IV PRN (08:00)
[2020-04-12] MEDS ORDERED: DIAZEPAM 5 MG/ML, 2ML IVPush PRN (08:00)
[2020-04-12] MEDS ORDERED: ACETAMINOPHEN 325 MG TABLET PO PRN (08:00)
[2020-04-12] MEDS ORDERED: LABETALOL 5MG/ML, 20ML IV PRN ×2 (08:00→11:30)
[2020-04-12] MEDS ORDERED: PROMETHAZINE 25 MG/ML, 1ML IVPush PRN (08:00)
[2020-04-12] MEDS ORDERED: OXYcodone 5 MG/5 ML ORAL.SOL UDC PO PRN (08:00)
[2020-04-12] MEDS ORDERED: ONDANSETRON 2MG/ML, 2ML IVPush PRN (08:00)
[2020-04-12] MEDS ORDERED: MEPERIDINE/PF 25MG/0.5ML IVPush PRN (08:00)
[2020-04-12] MEDS ORDERED: HYDROmorphone 1 MG/ML, 1ML INJ IVPush PRN (08:00)
[2020-04-12] MEDS ORDERED: METHOCARBAMOL 1,000 MG in DEXTROSE 5% 100 ML IV PRN (08:00)
[2020-04-12] MEDS: metFORMIN XR 500 MG TAB.ER.24H PO SCH (09:00)
[2020-04-12] MEDS ORDERED: FENTANYL PF 100 MCG/2ML ONE (09:55)
[2020-04-12] MEDS: FENTANYL PF 100 MCG/2ML IV PRN ×2 (09:56→10:11)
[2020-04-12] MEDS ORDERED: LABETALOL 5MG/ML, 20ML ONE (10:02)
[2020-04-12] MEDS ORDERED: OXYcodone 5 MG/5 ML ORAL.SOL UDC ONE (10:19)
[2020-04-12] MEDS ORDERED: MAGNESIUM HYDROXIDE 8%, 30ML UDC PO PRN (11:30)
[2020-04-12] MEDS ORDERED: DIPHENHYDRAMINE 50 MG/ML, 1ML IVPush PRN (11:30)
[2020-04-12] MEDS ORDERED: DIPHENHYDRAMINE 50 MG/ML, 1ML IM PRN (11:30)
[2020-04-12] MEDS ORDERED: BISACODYL 10 MG SUPP PR PRN (11:30)
[2020-04-12] MEDS ORDERED: DIPHENHYDRAMINE 25 MG CAPSULE PO PRN (11:30)
[2020-04-12] MEDS ORDERED: ONDANSETRON 2MG/ML, 2ML IV PRN (11:30)
[2020-04-12] MEDS ORDERED: PROMETHAZINE 25 MG/ML, 1ML IM PRN (11:30)
[2020-04-12] MEDS: ENALAPRIL 20MG TABLET PO SCH ×2 (12:21→20:42)
[2020-04-12] MEDS: MAGNESIUM OXIDE 400 MG TABLET PO SCH (12:21)
[2020-04-12] MEDS: HYDROCHLOROTHIAZIDE 12.5 MG CAPSULE PO SCH (12:21)
[2020-04-12 13:21] VITALS: BP 100/61
[2020-04-12] MEDS: HYDROcodone/APAP 10/325 MG TABLET PO PRN ×3 (14:27→19:34)
[2020-04-12] MEDS: CEFAZOLIN PMX 1GM/50ML 50 ML IVPB SCH ×2 (15:56→23:12)
[2020-04-12 18:57] VITALS: BP 106/63
[2020-04-12] MEDS: METHOCARBAMOL 750 MG TABLET PO PRN (20:42)
[2020-04-12] MEDS: ATORVASTATIN 80 MG TABLET PO SCH (20:42)
[2020-04-13] MEDS: HYDROcodone/APAP 10/325 MG TABLET PO PRN ×5 (00:04→22:54)
[2020-04-13 00:21] VITALS: BP 97/60
[2020-04-13] MEDS: NS + 20MEQ KCL 1,000 ML IV SCH ×3 (01:37→22:00)
[2020-04-13 03:30] VITALS: BP 93/55
[2020-04-13 05:05] LABS: ANION GAP 5 mmol/L (5-15); CALCIUM 7.6 mg/dL (8.5-10.1); CHLORIDE 102 mmol/L (98-107); CREATININE 0.49 mg/dL (0.55-1.02)
[2020-04-13 05:12] LABS: BASOPHILS # (AUTO) 0.02 x10^3/uL (0-0.1); BASOPHILS % (AUTO) 0 % (0-1); EOSINOPHILS # (AUTO) 0.05 x10^3/uL (0-0.4); EOSINOPHILS % (AUTO) 1 % (1-7); LYMPHOCYTES # (AUTO) 1.42 x10^3/uL (1-3.4); LYMPHOCYTES % (AUTO) 17 % (22-44); MD NO; MEAN CORPUSCULAR HEMOGLOBIN 31.9 pg (27.0-34.8); MEAN CORPUSCULAR HGB CONC 33.2 g/dL (32.4-35.8); MEAN CORPUSCULAR VOLUME 96.1 fL (80-100); MEAN PLATELET VOLUME 8.8 fL (7.4-10.4); MONOCYTES % (AUTO) 11 % (2-9); NEUTROPHILS # (AUTO) 6.02 x10^3/uL (1.8-6.8); NEUTROPHILS % (AUTO) 72 % (42-75); PLATELET COUNT 186 x10^3/uL (130-400); RED BLOOD COUNT 3.31 x10^6/uL (3.82-5.3); RED CELL DISTRIBUTION WIDTH 13.4 % (9.6-15.2)
[2020-04-13] MEDS: PANTOPRAZOLE 40MG TABLET PO SCH (05:58)
[2020-04-13] MEDS: CEPHALEXIN 500 MG CAPSULE PO SCH ×4 (05:58→20:49)
[2020-04-13] MEDS: ENOXAPARIN 40 MG/0.4 ML SQ SCH (05:58)
[2020-04-13] MEDS: LEVOTHYROXINE 125 MCG TABLET PO SCH (05:58)
[2020-04-13] MEDS: SCOPOLAMINE 1MG PATCH TD SCH (05:59)
[2020-04-13] MEDS: INSULIN REGULAR 100 UNITS/ML, 3ML VIAL SQ-INSULIN SCH ×4 (07:00→20:53)
[2020-04-13 07:05] VITALS: BP 108/65
[2020-04-13] MEDS: HYDROCHLOROTHIAZIDE 12.5 MG CAPSULE PO SCH (07:55)
[2020-04-13] MEDS: SENNA/DOCUSATE TABLET PO SCH (07:55)
[2020-04-13] MEDS: MAGNESIUM OXIDE 400 MG TABLET PO SCH (07:55)
[2020-04-13] MEDS: ENALAPRIL 20MG TABLET PO SCH ×2 (07:56→20:49)
[2020-04-13] MEDS: FERROUS SULFATE 325 MG TABLET PO SCH (07:56)
[2020-04-13 13:43] VITALS: BP 116/65
[2020-04-13 18:59] VITALS: BP 101/53
[2020-04-13] MEDS: ATORVASTATIN 80 MG TABLET PO SCH (20:49)
[2020-04-13] MEDS: METHOCARBAMOL 750 MG TABLET PO PRN (22:53)
[2020-04-14 01:34] VITALS: BP 91/51
[2020-04-14] MEDS: HYDROcodone/APAP 10/325 MG TABLET PO PRN ×4 (03:27→20:59)
[2020-04-14 05:14] LABS: BASOPHILS # (AUTO) 0.02 x10^3/uL (0-0.1); BASOPHILS % (AUTO) 0 % (0-1); EOSINOPHILS # (AUTO) 0.28 x10^3/uL (0-0.4); EOSINOPHILS % (AUTO) 4 % (1-7); LYMPHOCYTES # (AUTO) 1.31 x10^3/uL (1-3.4); LYMPHOCYTES % (AUTO) 18 % (22-44); MD NO; MEAN CORPUSCULAR HEMOGLOBIN 31.9 pg (27.0-34.8); MEAN CORPUSCULAR HGB CONC 32.9 g/dL (32.4-35.8); MEAN CORPUSCULAR VOLUME 96.9 fL (80-100); MEAN PLATELET VOLUME 8.7 fL (7.4-10.4); MONOCYTES # (AUTO) 0.79 x10^3/uL (0.2-0.8); MONOCYTES % (AUTO) 11 % (2-9); NEUTROPHILS # (AUTO) 4.74 x10^3/uL (1.8-6.8); NEUTROPHILS % (AUTO) 66 % (42-75); PLATELET COUNT 207 x10^3/uL (130-400); RED BLOOD COUNT 3.37 x10^6/uL (3.82-5.3); RED CELL DISTRIBUTION WIDTH 13.9 % (9.6-15.2)
[2020-04-14 05:27] LABS: ANION GAP 6 mmol/L (5-15); CALCIUM 7.9 mg/dL (8.5-10.1); CHLORIDE 99 mmol/L (98-107)
[2020-04-14 05:28] LABS: CREATININE 0.45 mg/dL (0.55-1.02)
[2020-04-14] MEDS: PANTOPRAZOLE 40MG TABLET PO SCH (06:36)
[2020-04-14] MEDS: ENOXAPARIN 40 MG/0.4 ML SQ SCH (06:36)
[2020-04-14] MEDS: LEVOTHYROXINE 125 MCG TABLET PO SCH (06:36)
[2020-04-14] MEDS: CEPHALEXIN 500 MG CAPSULE PO SCH ×4 (06:36→20:58)
[2020-04-14] MEDS: INSULIN REGULAR 100 UNITS/ML, 3ML VIAL SQ-INSULIN SCH ×4 (07:00→21:00)
[2020-04-14] MEDS ORDERED: MAGNESIUM CITRATE 300ML ORAL SOL PO PRN (07:00)
[2020-04-14 07:21] VITALS: BP 125/76
[2020-04-14] MEDS: NS + 20MEQ KCL 1,000 ML IV SCH ×2 (07:49→17:54)
[2020-04-14] MEDS: ENALAPRIL 20MG TABLET PO SCH ×3 (09:00→20:59)
[2020-04-14] MEDS: MAGNESIUM OXIDE 400 MG TABLET PO SCH (09:04)
[2020-04-14] MEDS: POLYETHYLENE GLYCOL 17 GM PACKET PO SCH (09:05)
[2020-04-14] MEDS: FERROUS SULFATE 325 MG TABLET PO SCH (09:05)
[2020-04-14] MEDS: SENNA/DOCUSATE TABLET PO SCH (09:05)
[2020-04-14] MEDS: HYDROCHLOROTHIAZIDE 12.5 MG CAPSULE PO SCH (09:05)
[2020-04-14 13:21] VITALS: BP 131/77
[2020-04-14 19:29] VITALS: BP 111/71
[2020-04-14] MEDS: ATORVASTATIN 80 MG TABLET PO SCH (20:58)
[2020-04-14] MEDS: METHOCARBAMOL 750 MG TABLET PO PRN (20:58)
[2020-04-15] MEDS: HYDROcodone/APAP 10/325 MG TABLET PO PRN ×3 (02:02→10:12)
[2020-04-15 02:10] VITALS: BP 110/65
[2020-04-15] MEDS: NS + 20MEQ KCL 1,000 ML IV SCH ×2 (04:00→12:18)
[2020-04-15] MEDS: ENOXAPARIN 40 MG/0.4 ML SQ SCH (05:05)
[2020-04-15] MEDS: PANTOPRAZOLE 40MG TABLET PO SCH (05:05)
[2020-04-15] MEDS: LEVOTHYROXINE 125 MCG TABLET PO SCH (05:05)
[2020-04-15] MEDS: CEPHALEXIN 500 MG CAPSULE PO SCH ×2 (05:05→10:56)
[2020-04-15] MEDS: INSULIN REGULAR 100 UNITS/ML, 3ML VIAL SQ-INSULIN SCH ×2 (07:00→11:00)
[2020-04-15 07:57] VITALS: BP 119/78
[2020-04-15] MEDS: ENALAPRIL 20MG TABLET PO SCH (08:27)
[2020-04-15] MEDS: SENNA/DOCUSATE TABLET PO SCH (08:27)
[2020-04-15] MEDS: MAGNESIUM OXIDE 400 MG TABLET PO SCH (08:27)
[2020-04-15] MEDS: HYDROCHLOROTHIAZIDE 12.5 MG CAPSULE PO SCH (08:27)
[2020-04-15] MEDS: POLYETHYLENE GLYCOL 17 GM PACKET PO SCH (08:27)
[2020-04-15] MEDS: FERROUS SULFATE 325 MG TABLET PO SCH (08:28)
[2020-04-15] MEDS ORDERED: HYDR-3246 PO (08:53)
[2020-04-15] MEDS ORDERED: METH750T2 PO (08:54)
== END 2020-04-15 13:29 | disposition home or self-care (01) | DRG 454 ==
LOC: ORIP 05:28 → 4NE 11:27 → EDSTATUS 12:30 → DCLOUNGE 04-15 13:15
PROVIDERS: ADMIT Neurological Surgery; ATTEND Neurological Surgery
PROC: 4A11X4G Monitoring of Peripheral Nervous Electrical Activity, Intraoperative, External Approach (ICD-10-PCS; 2020-04-10)
PROC: 0SG00A0 Fusion of Lumbar Vertebral Joint with Interbody Fusion Device, Anterior Approach, Anterior Column, Open Approach (ICD-10-PCS; principal; 2020-04-10 07:00)
PROC: 0SG10K1 Fusion of 2 or more Lumbar Vertebral Joints with Nonautologous Tissue Substitute, Posterior Approach, Posterior Column, Open Approach (ICD-10-PCS; 2020-04-12)
PROC: 01NB0ZZ Release Lumbar Nerve, Open Approach (ICD-10-PCS; 2020-04-12)
PROC: 4A11X4G Monitoring of Peripheral Nervous Electrical Activity, Intraoperative, External Approach (ICD-10-PCS; 2020-04-12)
PROC: 8E0W0CZ Robotic Assisted Procedure of Trunk Region, Open Approach (ICD-10-PCS; 2020-04-12)
DX: M48.062 Spinal stenosis, lumbar region with neurogenic claudication (principal); Z68.41 Body mass index [BMI] 40.0-44.9, adult; M41.56 Other secondary scoliosis, lumbar region; M54.16 Radiculopathy, lumbar region; M51.36 Other intervertebral disc degeneration, lumbar region; M53.2X6 Spinal instabilities, lumbar region; E11.9 Type 2 diabetes mellitus without complications; M25.78 Osteophyte, vertebrae; Z20.828 Contact with and (suspected) exposure to other viral communicable diseases; E66.01 Morbid (severe) obesity due to excess calories; Z79.899 Other long term (current) drug therapy
CPT/HCPCS: 36415; 72100; 72131; 80048; 82962; 85025; 87635; 95938; 95941; C1713; C1729; G0378; J0690; J1100; J1170; J1650; J2250; J2405; J2704; J2710; J3010; J3370; J3480; J3490; C1760; C1763; C1769; C1889; J0330; J0360; J2370; J2800; J7120; U0001-CS